=== PATIENT | female | born 1955 | race Caucasian/White ===

== ENCOUNTER 2017-05-26 11:46 | Inpatient (IN) | payer OTHER ==
[~2017-05-26] VITALS: Ht 162.6 cm; Wt 104.4 kg
[~2017-05-26 11:46] MED LIST: ACETAMINOPHEN325 M2 PO; ASPIRIN325 M3 PO; DILANTIN100 M1 PO; LAMICTAL200 M2 PO; MILK OF MAGNESIA PO; MOTRIN IB200 M1 PO; PHENOBARBITAL97.2 M1 PO; ROXICODONE5 M2 PO; XARELTO10 M1 PO; ZYRTEC10 M7 PO
[2017-05-26 12:29] LABS: PROTHROMBIN TIME 11.8 SECONDS (9.0-13.6)
[2017-05-27 05:54] LABS: HCT-HEMATOCRIT 37.3 % (34.0-49.0); HGB-HEMOGLOBIN 12.4 gm/dl (12.0-15.5); IMMATURE GRANULOCYTES ABSOLUTE 0.01 tho/cmm (0-0.03); IMMATURE GRANULOCYTES PERCENT 0.1 % (0-0.3); LYMPH % 15.1 % (20-45); LYMPH ABSOLUTE COUNT 1.1 tho/cmm (0.8-4.5); MCH (MEAN CORPUSCULAR HGB) 32.3 pg (28.0-32.0); MCHC MEAN CORPUSCULAR HGB CONC 33.2 % (32.0-36.0); MCV (MEAN CELL VOLUME) 97.1 fl (82.0-96.0); MEAN PLATELET VOLUME 10.1 cmc (9.4-12.4); MONOCYTE ABSOLUTE COUNT 0.5 tho/cmm (0.0-1.2); NEUTROPHIL ABSOLUTE COUNT 5.9 tho/cmm (1.6-8.0); NEUTROPHIL-AUTOMATED 5.9 tho/cmm (1.6-8.0); NEUTROPHILS % 78.8 % (40-80); PLATELET COUNT 171 tho/cmm (150-450); RED BLOOD COUNT 3.84 mil/cmm (4.00-5.20); RED CELL DISTRIBUTION WIDTH 13.1 % (12.4-16.4); WHITE BLOOD COUNT 7.5 tho/cmm (4.0-10.0)
[2017-05-29] MEDS ORDERED: ULTRAM50 M1 PO (10:46)
[2017-05-29] MEDS ORDERED: ROXICODONE5 M2 PO (10:48)
[2017-05-29] MEDS ORDERED: ASPIRIN81 M1 PO (10:51)
== END 2017-05-29 14:25 | DRG 470 ==
LOC: 5EA 11:46 → SHSA 11:46 → PACU 11:46 → CARE 13:40 → ORE 16:25 → PACU 18:05 → 5EA 19:55
PROVIDERS: ADMIT Orthopaedic Surgery
PROC: 0SRD0J9 Replacement of Left Knee Joint with Synthetic Substitute, Cemented, Open Approach (ICD-10-PCS; principal; 2017-05-26)
PROC: 3E0234Z Introduction of Serum, Toxoid and Vaccine into Muscle, Percutaneous Approach (ICD-10-PCS; 2017-05-29)
DX: M17.12 Unilateral primary osteoarthritis, left knee (principal); F32.9 Major depressive disorder, single episode, unspecified; M21.162 Varus deformity, not elsewhere classified, left knee; Z23 Encounter for immunization; G40.909 Epilepsy, unspecified, not intractable, without status epilepticus; F17.220 Nicotine dependence, chewing tobacco, uncomplicated; M54.16 Radiculopathy, lumbar region
CPT/HCPCS: C1713; C1776; G0009; J0171; J0690; J1200; J1885; J2250; J2270; J2795; J3010